=== PATIENT | male | born 1980 ===

== ENCOUNTER 2020-03-06 13:45 | Outpatient (REF) | payer MEDICAID, SELFPAY ==
[2020-03-06 20:44] LABS: Calculated LDL 113 mg/dL (<100); Cholesterol 179 mg/dL (<200); Glucose 82 mg/dL (74-106); HDL Cholesterol 41 mg/dL (40-60); Triglyceride 129 mg/dL (<150)
== END 2020-03-06 14:05 ==
LOC: NCHCN 13:45
PROVIDERS: PCP Family Medicine; Visit Provider Family Medicine
DX: K30 Functional dyspepsia (principal); Z13.220 Encounter for screening for lipoid disorders; Z13.1 Encounter for screening for diabetes mellitus; M54.2 Cervicalgia
CPT/HCPCS: 80061; 82947